=== PATIENT | male | born 1990 | race Caucasian/White ===

== ENCOUNTER → 2022-07-28 11:22 | Outpatient (CLI) | payer BC, SELFPAY ==
[2022-07-28 22:05] LABS: Urine N gonorrhoeae NOT DETECTED
[2022-07-28 22:12] LABS: Urine Chlamydia NOT DETECTED
[2022-07-30 15:48] LABS: HIV 1 & 2 Ab/Ag 4th Gen Combo NEGATIVE (NEGATIVE)
[2022-07-31 01:49] LABS: HSV 2 IGG AB < 0.91 index (0.00-0.90)
[2022-07-31 05:40] LABS: RPR Screen Non Reactive (Non Reactive)
== END ==
PROVIDERS: PCP Family Medicine; Visit Provider Family Medicine
DX: Z20.2 Contact with and (suspected) exposure to infections with a predominantly sexual mode of transmission (principal)
CPT/HCPCS: 86592; 86695; 86696; 87389; 87491; 87591

== ENCOUNTER → 2022-08-04 14:18 | Outpatient (CLI) | payer BC, SELFPAY ==
[2022-08-07 09:44] LABS: C.trachomatis RNA Negative (Negative); N.gonorrhoeae RNA Negative (Negative)
== END ==
PROVIDERS: PCP Family Medicine; Visit Provider Family Medicine
DX: Z20.2 Contact with and (suspected) exposure to infections with a predominantly sexual mode of transmission (principal)
CPT/HCPCS: 87491; 87591